=== PATIENT | female | born 1960 | race Caucasian/White ===

== ENCOUNTER 2018-12-02 13:46 | Emergency (ER) | payer BC, SELFPAY ==
[~2018-12-02] VITALS: Ht 182.9 cm; Wt 97.0 kg
[2018-12-02] MEDS ORDERED: aspirin 81mg tab.chew PO ONE (14:15)
[2018-12-02 14:43] LABS: BASOPHILS % (AUTO) 0.8 % (0-1); EOSINOPHILS # (AUTO) 0.1 X10'3 (0-0.9); EOSINOPHILS % (AUTO) 1.1 % (0-6); HEMATOCRIT 38.2 % (35.0-45.0); HEMOGLOBIN 12.7 g/dl (12.0-16.0); LYMPHOCYTES # (AUTO) 1.3 X10'3 (1.1-4.8); LYMPHOCYTES % (AUTO) 24.5 % (21-51); MEAN CORPUSCULAR HEMOGLOBIN 29.5 PG (27.0-31.0); MEAN CORPUSCULAR HGB CONC 33.3 g/dL (33.0-36.5); MEAN CORPUSCULAR VOLUME 88.5 FL (78-98); MEAN PLATELET VOLUME 8.2 FL (7.4-10.4); MONOCYTES # (AUTO) 0.3 X10'3 (0-0.9); MONOCYTES % (AUTO) 4.7 % (2-12); NEUTROPHILS # (AUTO) 3.8 X10'3 (1.8-7.7); NEUTROPHILS % (AUTO) 68.9 % (42-75); PLATELET COUNT 202 X10'3 (140-440); RED BLOOD COUNT 4.31 X10'6 (4.20-5.60); RED CELL DISTRIBUTION WIDTH 13.7 % (11.5-14.5); WHITE BLOOD COUNT 5.5 X10'3 (4.5-11.0)
[2018-12-02 14:54] LABS: ALANINE AMINOTRANSFERASE 17 U/L (12-78); ALBUMIN 4.2 G/DL (3.4-5.0); ALBUMIN/GLOBULIN RATIO 1.4 (1.1-1.5); ALKALINE PHOSPHATASE 73 IU/L (46-116); ANION GAP 9 (8-16); ASPARTATE AMINO TRANSFERASE 15 U/L (10-37); BILIRUBIN,TOTAL 0.7 MG/DL (0.1-1.0); BLOOD UREA NITROGEN 13 MG/DL (7-18); CALCIUM 9.5 MG/DL (8.5-10.1); CHLORIDE 106 MMOL/L (99-107); GLUCOSE 112 MG/DL (70-104); POTASSIUM 3.4 MMOL/L (3.5-5.1); SODIUM 142 MMOL/L (135-145); TOTAL CARBON DIOXIDE 27.2 MMOL/L (24-32); TOTAL PROTEIN 7.3 G/DL (6.4-8.2); eGFR 57 ML/MIN
[2018-12-02 15:00] LABS: MAGNESIUM 1.9 MG/DL (1.5-2.4)
[2018-12-02 15:01] LABS: D-DIMER < 0.19 MG/L FEU (0-0.50)
[2018-12-02 15:30] VITALS: BP 113/73
== END 2018-12-02 15:49 | disposition home or self-care (01) ==
LOC: ER 13:47
DX: R07.89 Other chest pain (principal); R42 Dizziness and giddiness; R06.02 Shortness of breath; R61 Generalized hyperhidrosis; F12.90 Cannabis use, unspecified, uncomplicated; Z88.1 Allergy status to other antibiotic agents
CPT/HCPCS: 36415; 71046; 80053; 83735; 83880; 84484; 85025; 85379; 93005; 99284

== ENCOUNTER 2019-08-09 05:29 | Day surgery (SDC) | payer BC ==
[2019-08-07 11:24] LABS: BASOPHILS % (AUTO) 1.1 % (0-1); EOSINOPHILS # (AUTO) 0.1 X10'3 (0-0.9); EOSINOPHILS % (AUTO) 3.2 % (0-6); LYMPHOCYTES # (AUTO) 1.5 X10'3 (1.1-4.8); LYMPHOCYTES % (AUTO) 34.8 % (21-51); MEAN CORPUSCULAR HEMOGLOBIN 30.2 PG (27.0-31.0); MEAN CORPUSCULAR HGB CONC 34.3 g/dL (33.0-36.5); MEAN CORPUSCULAR VOLUME 88.2 FL (78-98); MEAN PLATELET VOLUME 8.8 FL (7.4-10.4); MONOCYTES # (AUTO) 0.3 X10'3 (0-0.9); MONOCYTES % (AUTO) 6.7 % (2-12); NEUTROPHILS # (AUTO) 2.3 X10'3 (1.8-7.7); NEUTROPHILS % (AUTO) 54.2 % (42-75); PRE OP HEMATOCRIT 35.2 % (35.0-45.0); PRE OP HEMOGLOBIN 12.1 g/dL (12.0-16.0); PRE OP PLATELET COUNT 160 X10'3 (140-440); RED BLOOD COUNT 3.99 X10'6 (4.20-5.60); RED CELL DISTRIBUTION WIDTH 13.9 % (11.5-14.5)
[2019-08-07 11:28] LABS: CLARITY,URINE CLEAR (Clear); COLOR,URINE YELLOW (Yellow); GLUCOSE, URINE NEGATIVE (Neg); KETONES,URINE NEGATIVE (Neg); LEUKOCYTE ESTERASE ,URINE NEGATIVE (Neg); NITRITES, URINE NEGATIVE (Neg); OCCULT BLOOD,URINE MODERATE (Neg); PH,URINE 5.5 (4.8-8.0); PROTEIN,URINE NEGATIVE (Neg); UA COLLECTION TYPE CLN CATCH MIDSTREAM; UROBILINOGEN,URINE 0.2 E.U/dL (0.2-1.0)
[2019-08-07 11:34] LABS: ALBUMIN 3.8 G/DL (3.4-5.0); ALBUMIN/GLOBULIN RATIO 1.5 (1.1-1.5); ALKALINE PHOSPHATASE 72 IU/L (46-116); BLOOD UREA NITROGEN 10 MG/DL (7-18); BUN/CREATININE RATIO 11.8 (6.6-38.0); CALCIUM 8.7 MG/DL (8.5-10.1); CHLORIDE 109 MMOL/L (99-107); CREATININE 0.85 MG/DL (0.40-0.90); PRE OP ALT 21 U/L (30-65); PRE OP ANION GAP 3 (8-16); PRE OP AST 16 U/L (10-37); PRE OP BILIRUB, TOTAL 0.4 MG/DL (0.0-1.0); PRE OP GLUCOSE 106 MG/DL (70-104); PRE OP POTASSIUM 4.1 MMOL/L (3.4-5.1); PRE OP SODIUM 144 MMOL/L (135-145); TOTAL CARBON DIOXIDE 32.3 MMOL/L (24-32); TOTAL PROTEIN 6.4 G/DL (6.4-8.2); eGFR 68 ML/MIN
[2019-08-07 11:43] LABS: MUCUS STRANDS NONE SEEN /LPF (Neg); SQUAMOUS EPITHELIAL CELL,UR FEW /LPF (FEW)
[2019-08-07 11:44] LABS: BACTERIA,URINE FEW /HPF (Neg); RBC,URINE 0-2 /HPF (0-2); WBC,URINE 0-4 /HPF (0-4)
[~2019-08-09] VITALS: Ht 182.9 cm; Wt 95.0 kg
[~2019-08-09 05:29] MED LIST: NO HOME MEDS; ringers solution, lacted 1,000 ML IV SCH
[2019-08-09] MEDS ORDERED: famotidine 10mg tablet PO ONE (05:30)
[2019-08-09] MEDS ORDERED: clindamycin-Cleocin 900mg/D5W 50 ML IV ONE (05:30)
[2019-08-09 06:00] VITALS: BP 130/77
[2019-08-09] MEDS ORDERED: LIDOcaine 1% (10mg/ml) 2ml vial ONE (06:12)
[2019-08-09] MEDS ORDERED: BUPIVAcaine/PF 2.5 mg/ml (0.25%) 30ml vial ONE (06:51)
[2019-08-09] MEDS ORDERED: fentaNYL/PF 50MCG/1 ML 2ML syringe ONE (07:36)
[2019-08-09] MEDS ORDERED: midazolam 2 mg/2 ml injection ONE (07:36)
[2019-08-09] MEDS ORDERED: ketorolac trometh. 30mg/ml inj. ONE (07:38)
[2019-08-09] MEDS ORDERED: LIDOcaine 2% (20mg/ml) 5ml vial ONE (07:38)
[2019-08-09] MEDS ORDERED: dexamethasone sod phosphate 4mg/ml inj. ONE (07:38)
[2019-08-09] MEDS ORDERED: rocuronium 10mg/ml inj IV ONE (07:38)
[2019-08-09] MEDS ORDERED: propofol inj 20 ML IV ONE (07:38)
[2019-08-09] MEDS ORDERED: ringers solution, lacted 1,000 ML IV SCH (07:42)
[2019-08-09] MEDS ORDERED: ondansetron/PF 4mg/2ml inj IV PRN (07:45)
[2019-08-09] MEDS ORDERED: morphine 4 MG/ML inj SYRINge IV PRN ×2 (07:45)
[2019-08-09] MEDS ORDERED: proCHLORperazine 10 MG/2 ml inj IV PRN (07:45)
[2019-08-09] MEDS ORDERED: meperidine/PF 25mg/ml syringe IV PRN ×3 (07:45)
[2019-08-09] MEDS ORDERED: sevoflurane 250ml liquid IH ONE (08:20)
[2019-08-09] MEDS ORDERED: glycopyrrolate 0.2mg/ml inj ONE (08:20)
[2019-08-09] MEDS ORDERED: neostigmine methylsulfate 1 MG/ML 10ml vial ONE (08:20)
[2019-08-09] MEDS ORDERED: ondansetron/PF 4mg/2ml inj ONE (08:51)
[2019-08-09] MEDS ORDERED: acetaminophen 1,000mg/100ml IV 100 ML IV ONE ×2 (09:01→09:02)
[2019-08-09 09:22] VITALS: BP 138/60
--- NOTE | 2019-08-09 09:22 | NUR ---
Received from OR via m[facility]zie, accompanied by Anesthesiologist Trip and report given by Anesthesiolgist. Pt VS stable with O2 mask at 10L sats 100%, 20G IV to left forearm IVF at 100cc/hr. Lap sites with bandaids to abdomen present CDI. Mele continue to monitor closely.
[2019-08-09 09:32] VITALS: BP 133/79
[2019-08-09 09:42] VITALS: BP 128/75
[2019-08-09 09:52] VITALS: BP 116/72
[2019-08-09 10:02] VITALS: BP 118/79
--- NOTE | 2019-08-09 10:22 | NUR ---
Pt discharged by wheelchair to vehicle without incident. Pt stated she understood all DC information. IV DC'd. Lap sites remain CDI. Pt ambulated ate drank and voided. Pt states office has called in pain script to pharmacy. Pt stable for discharge.
== END 2019-08-09 10:22 | disposition home or self-care (01) ==
LOC: PAS 05:29
PROVIDERS: ATTEND Surgery
DX: K80.10 Calculus of gallbladder with chronic cholecystitis without obstruction (principal); E78.5 Hyperlipidemia, unspecified; G47.30 Sleep apnea, unspecified; Z98.51 Tubal ligation status; Z88.0 Allergy status to penicillin; Z88.1 Allergy status to other antibiotic agents; Z72.89 Other problems related to lifestyle; Z79.899 Other long term (current) drug therapy
CPT/HCPCS: 36415; 47562; 80053; 81001; 82948; 85025; 93005; J0131; J1100; J1885; J2001; J2175; J2250; J2405; J2704; J2710; J3010; J3490; J7120; A4215; A4618; A7000

== ENCOUNTER 2020-12-11 15:25 | Outpatient (CLI) | payer BC ==
[~2020-12-11 15:25] MED LIST changes: -ringers solution, lacted 1,000 ML IV SCH
== END 2020-12-11 23:59 | disposition home or self-care (01) ==
LOC: RAD 15:25
PROVIDERS: ATTEND Nurse Practitioner Family
DX: K21.9 Gastro-esophageal reflux disease without esophagitis (principal); R13.14 Dysphagia, pharyngoesophageal phase; R49.0 Dysphonia
CPT/HCPCS: 74230